=== PATIENT | female | born 1965 | race Two or more races ===

== ENCOUNTER 2017-07-19 07:18 | Outpatient (CLI) | payer OTHER | END 2017-07-19 07:54 | disposition home or self-care (01) | LOC: SONOGRAMA 07:18 | DX: E04.1 Nontoxic single thyroid nodule (principal) ==

== ENCOUNTER 2021-10-31 08:22 | Outpatient (CLI) | payer OTHER | END 2021-10-31 08:32 | disposition home or self-care (01) | LOC: SONOGRAMA 08:22 | PROVIDERS: ATTEND Pathology Anatomic Pathology & Clinical Pathology | DX: E04.2 Nontoxic multinodular goiter (principal) ==

== ENCOUNTER 2022-03-02 10:10 | Outpatient (CLI) | payer OTHER | END 2022-03-02 10:12 | disposition home or self-care (01) | LOC: SONOGRAMA 10:10 | PROVIDERS: ATTEND Pathology Anatomic Pathology & Clinical Pathology | DX: E04.2 Nontoxic multinodular goiter (principal) ==

== ENCOUNTER 2022-06-07 06:50 | Day surgery (SDC) | payer OTHER ==
[~2022-06-07] VITALS: Ht 165.1 cm; Wt 71.7 kg
[~2022-06-07 06:50] MED LIST: CLONAZEPAM1 MG PO; LIPITOR20 MG PO; NORVASC10 MG PO; OMEPRAZOLE-BIC1 EAC1 PO; TOPROL XL50 M1 PO
[2022-06-07] MEDS ORDERED: ULTRAM50 MG PO (13:06)
== END 2022-06-07 19:00 | disposition home or self-care (01) ==
LOC: CIR.AMB 06:50
PROVIDERS: ATTEND Surgery
DX: C73 Malignant neoplasm of thyroid gland (principal); E04.1 Nontoxic single thyroid nodule; I10 Essential (primary) hypertension; Z88.5 Allergy status to narcotic agent; Z20.822 Contact with and (suspected) exposure to COVID-19